=== PATIENT | female | born 1985 | race Hispanic/Latino ===

== ENCOUNTER 2019-06-05 15:47 | Emergency (ER) | payer MEDICAID, SELFPAY ==
[2019-06-05 18:09] VITALS: BP 139/84
== END 2019-06-05 17:28 | disposition left against medical advice (07) ==
LOC: ED 15:47
DX: R07.89 Other chest pain (principal); Z53.21 Procedure and treatment not carried out due to patient leaving prior to being seen by health care provider
CPT/HCPCS: 93005; 93010

== ENCOUNTER 2021-10-06 16:36 | Emergency (ER) | payer SELFPAY ==
[2021-10-06 17:30] VITALS: BP 129/84
== END 2021-10-07 19:00 | disposition left against medical advice (07) ==
LOC: ED 16:36
DX: T83.84XA Pain due to genitourinary prosthetic devices, implants and grafts, initial encounter (principal); Z53.21 Procedure and treatment not carried out due to patient leaving prior to being seen by health care provider; Y92.89 Other specified places as the place of occurrence of the external cause